=== PATIENT | female | born 1980 | race Caucasian/White ===

== ENCOUNTER 2020-10-06 13:06 | Emergency (ER) | payer OTHER ==
[~2020-10-06] VITALS: Ht 157.5 cm; Wt 59.0 kg
[2020-10-06] MEDS ORDERED: PSEUDOEPHEDRIN120 M1 PO (13:13)
[2020-10-06] MEDS ORDERED: ZPAK PO (13:13)
[2020-10-06] MEDS ORDERED: VYVANSE20 MG PO (13:14)
--- NOTE | 2020-10-06 15:30 | EKG ---
[place] [address] ELECTROCARDIOGRAM REPORT Name: RAMIN BARRIOS Room: [facility]#: [id number] Admission: 10/06/20 Attend Phys: Discharge: Date of : 78 Date of Service: 10/06/20 1405 Report #: [id number] THIS REPORT FOR: //name// [facility] ED Test Date: 2020-10-06 Test Time: 14:05:06 Pat Name: RAMIN BARRIOS Department: Room: Gender: Cardiopulmonary Specialist: : 1980 Requested By: Roberto Avila Order Number: [id number] MD: Bal Russell Measurements Intervals [place] Rate: 105 P: 53 KS: 128 QRS: 66 QRSD: 84 T: 37 QT: 349 QTc: 462 Interpretive Statements Sinus tachycardia No previous ECG available for comparison Electronically Signed On 10-06-2020 15:30:20 CDT by Bal Russell [email or web address] <ELECTRONICALLY SIGNED> By: Bal Russell MD, [facility] 10/06/20 1530 1405 1405 Bal Russell MD, FACC /EPI
[2020-10-06 16:10] VITALS: BP 130/83
== END 2020-10-06 16:10 | disposition home or self-care (01) ==
LOC: M.ERS 13:06
DX: R51.9 Headache, unspecified (principal); Z20.822 Contact with and (suspected) exposure to COVID-19; Z79.899 Other long term (current) drug therapy; Z88.1 Allergy status to other antibiotic agents